=== PATIENT | female | born 1950 | race Caucasian/White ===

== ENCOUNTER → 2017-07-13 | Day surgery (SDC) | payer OTHER ==
[~2017-07-13] MED LIST: BUPIVACAINE HCL PF 0.25% 30 ML VIAL ONE; KETOROLAC TROMETHAMINE 30 MG/ML (IVP) VIAL IV PUSH ONE; LACTATED RINGER'S 1000 ML INJ 1,000 ML ONE; MIDAZOLAM HCL 2 MG/2 ML VIAL ONE; ONDANSETRON HCL 4 MG/2 ML VIAL IV PUSH ONE; PROPOFOL 200 MG/20 ML AMP IV ONE; ceFAZolin 2 GM PREMIX 50 ML ONE
--- NOTE | 2017-07-13 15:28 | RADRPT ---
EXAM DATE/TIME: 07/13/2017 13:28 [place] COMPARISON: No previous studies available for comparison. INDICATIONS : Right foot arthroplasty. MEDICAL HISTORY : Nonresponsive SURGICAL HISTORY : Nonresponsive ENCOUNTER: Initial ACUITY: 1 day PAIN SCORE: Nonresponsive LOCATION: Right foot FINDINGS: Four-view intraoperative exam demonstrates the first MTP joint has been localized and r eplaced. No complications are noted. CONCLUSION: Four-view intraoperative exam demonstrates the first MTP joint has been localized and replaced. No complications are noted. Julio Naidu MD on July 13, 2017 at 14:44 Board Certified Radiologist. This report was verified electronically.
--- NOTE | 2017-07-15 18:28 | MP ---
cc: NEELIMA CRISTINA DPM Corrected Copy: 07/18/17 DATE OF SURGERY: 07/13/2017. 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 OPERATIVE PROCEDURE PERFORMED: Right first MPJ implant arthroplasty utilizing [employer] implant, size #3S. SURGEON: Neelima Cristina DPM SPECIMEN: None. ESTIMATED BLOOD LOSS: Less than 30 mL. COMPLICATIONS: None. ANESTHESIA: General with 20 cc of 0.25% Marcaine plain. TOURNIQUET TIME: 215 mmHg approximately 45 minutes about the patient's right mid-calf. PLAN OF ACTIVITY: Post-anesthesia care unit and then discharge home once stable per same day surgery criteria. JUSTIFICATION FOR THE PROCEDURE: This is a 66-year-old female with worsening right first MPJ pain. X-rays show severe joint space narrowing with decreased range of motion clinically. The patient was offered first MPJ fusion, implant arthroplasty or interpositional arthroplasty. She opted for total joint implant arthroplasty. The patient was educated on the possibility of stiffness, numbness, fracture of the implant and need for repeat procedure at a later date. No guarantees were given or implied regarding the outcome. DESCRIPTION OF THE PROCEDURE IN DETAIL: Under mild sedation, the patient was brought into the operating room and placed on the operating table in the supine position. Following the induction of general anesthesia, local anesthesia was obtained about the patient's first ray utilizing standard block fashion. The patient's right foot was then scrubbed, prepped and draped in the usual aseptic fashion. The foot was elevated, exsanguinated and the previously placed midcalf tourniquet was inflated to 15 mmHg. A linear incision was made over the dorsomedial aspect of the first MPJ. This was in-between the neurovascular bundle and the extensor hallucis longus tendon. Sharp and blunt dissection was carried down to the capsular layer. An L-shaped capsulotomy was performed revealing a prominent dorsomedial eminence with severe loss of articular surface of the first metatarsophalangeal joint, the head of the first MPJ as well as the base of the proximal phalanx. Utilizing a McGlamry elevator, plantar contractures and adhesions of the sesamoids were freed up to allow increased range of motion. Utilizing power instrumentation in the dorsomedial eminence and the medial eminence of the proximal phalanx as well as the first metatarsal head was resected. Next being careful to take no more than 9 mm of bone in total, the head of the first metatarsal was resected as well as the base of the proximal phalanx. Next utilizing a rotating bur, a channel was made for the stem of an implant of the first metatarsal as well as the base of the proximal phalanx. Utilizing copious amounts of normal saline, the area was lavaged being careful not to overheat the bone. Next a trial implant, the 3S, was then placed. There was noted to be excellent alignment and excellent range of motion. Next the trial implant was removed. The permanent implant was then placed. No grommets were indicated or needed as there was an excellent fit. The capsule was then reapproximated utilizing Vicryl. The skin was closed utilizing nylon. Fluoroscopy was used. The joint was brought through a range of motion. No subluxation. Maintained alignment with minimal hallux valgus; however, no longer were there any signs of hallux limitus with excellent dorsiflexion and plantar flexion. Upon relieving the tourniquet, there was a prompt hyperemic response to all digits without any delayed capillary fill time. The patient was transferred from the operating room to the post-anesthesia care unit with all vital signs stable. She is heel weight bear to tolerance within a controlled ankle motion boot. The patient is ambulatory. No indication needed for prophylaxis. No history of DVT or hormone supplementation; however, she was educated in great detail about the postoperative findings consistent with DVT and if this should arise, she will call the office immediately. PRIYANKA Núñez/EFREN /2:19 PM /1:01 PM
== END | disposition home or self-care (01) ==
LOC: ESDC 11:57
PROVIDERS: ATTEND Podiatrist Foot & Ankle Surgery
DX: M20.5X1 Other deformities of toe(s) (acquired), right foot (principal); M19.071 Primary osteoarthritis, right ankle and foot
CPT/HCPCS: 01480; 28291; 73620; 76000; C1713; J0690; J1885; J2250; J2405; J3010; J7120